=== PATIENT | male | born 1945 | race Caucasian/White ===

== ENCOUNTER 2018-10-30 09:28 | Day surgery (SDC) | payer MEDICARE ==
[~2018-10-30 09:28] MED LIST: Buffered Lidocaine 1% SYRIN* 1 ML/SYRINGE INTRADERM ONE; Famotidine IV* 10 MG/ML 2 ML (20 mg) IV ONE; Lactated Ringers 1000 ML Bag* 1,000 ML IV SCH
[2018-10-30] MEDS ORDERED: ceFAZolin 2 GM PREMIX in ORs 2 GM/50 ML BAG IVPB ONE (09:55)
[2018-10-30] MEDS ORDERED: Famotidine IV* 10 MG/ML 2 ML (20 mg) ONE (09:55)
[2018-10-30] MEDS ORDERED: Lidocaine 2% PF * 5 ML VIAL ONE (10:09)
[2018-10-30] MEDS ORDERED: Ketorolac INJ* 30 MG/ML 1 ML VIAL ONE (10:09)
[2018-10-30] MEDS ORDERED: Dexamethasone IV* 4 MG/ML 1 ML (4 MG) ONE (10:09)
[2018-10-30] MEDS ORDERED: Propofol* 10 MG/ML 20 ML BTL ONE (10:09)
[2018-10-30] MEDS ORDERED: Ondansetron INJ* 2 MG/ML VIAL ONE (10:09)
[2018-10-30] MEDS ORDERED: Cisatracurium* 2 MG/ML MDV 5 ML ONE (10:10)
[2018-10-30] MEDS ORDERED: Midazolam* 1 MG/ML 5 ML VIAL (5 MG) ONE (10:10)
[2018-10-30] MEDS ORDERED: fentaNYL* 50 MCG/ML 2 ML VIAL (100 MCG VIAL) ONE (10:10)
[2018-10-30] MEDS ORDERED: Bupivacaine 0.5% W/EPI SDV* 30 ML VIAL ONE (10:41)
[2018-10-30] MEDS ORDERED: Ondansetron INJ* 2 MG/ML VIAL IV PRN (12:01)
[2018-10-30] MEDS ORDERED: Acetaminophen IV 1GM/100ML * 1,000 MG/100 ML VIAL IVPB ONE (12:01)
[2018-10-30] MEDS ORDERED: fentaNYL* 50 MCG/ML 2 ML VIAL (100 MCG VIAL) IV PRN (12:01)
[2018-10-30] MEDS ORDERED: Naloxone* 0.4 MG/ML 1 ML VIAL IV PRN (12:01)
--- NOTE | 2018-10-30 12:56 | OP ---
Operative Report - Blank - Operative Report Date of Operation: 10/30/18 Note: Brief Operative Note Preop Dx: right inguinal hernia Postop Dx: same, direct Procedure: laparoscopic repair RIH w/ mesh Anesthesia: GET Surgeon: Evelyne Rpg Developer : Liao PA; ASIA Ferguson Fluids: 1350 ml RL EBL: < 10 ml Specimen: none Drains: none Findings: dictated
[2018-10-30 14:11] VITALS: BP 135/80
--- NOTE | 2018-10-30 20:58 | OP ---
CC: Mo DO Tyrone* OPERATIVE REPORT: DATE OF OPERATION: 10/30/18 - SDS DATE OF : 41 SURGEON: Jeancarlos Stubbs MD. COURT RECORDER: ALLEN Brush. ANESTHESIOLOGIST: Dr. Travon Simms. ANESTHESIA: General endotracheal. PRE-OP DIAGNOSIS: Recurrent right inguinal hernia. POST-OP DIAGNOSIS: Recurrent right inguinal hernia. OPERATIVE PROCEDURE: Laparoscopic preperitoneal repair of right inguinal hernia with mesh. ESTIMATED BLOOD LOSS: Minimal. IV FLUIDS: Crystalloid. SPECIMEN: None. DRAINS: None. COMPLICATIONS: None. COUNTS: The instrument, needle and sponge counts were correct. DESCRIPTION OF PROCEDURE: The patient was brought to the operating room and placed on the table supine. Sequential compression devices were placed on both lower extremities. General anesthesia was administered. Roach catheter was placed. He was positioned and padded appropriately and received the appropriate antibiotics and after prep and drape, a time-out was performed. Local anesthetic was infiltrated into the skin and soft tissue prior to each incision. A curvilinear infraumbilical incision was created. Subcutaneous tissues were divided with cautery. The anterior rectus fascia was identified to the right of midline and incised transversally. The underlying muscles were retracted laterally and a preperitoneal balloon dissection was positioned down to the pubic symphysis and insufflated under direct visualization. This was removed and replaced with a 12 mm blunt port. Carbon dioxide was insufflated to a pressure of 12 mmHg. Under direct visualization, two 5 mm trocars were placed in the lower midline. Inspection revealed the patient to have a large right direct inguinal hernia. The hernia sac was reduced and it was allowed to retract within the abdominal cavity. The dissection proceeded further the laterally, preserving the inferior epigastric vessels anteriorly and identifying and preserving the spermatic cord structures. The peritoneal sac was dissected free far laterally to the anterior superior iliac spine. The hernia defect itself was approximately 4 cm across. To repair this, the Bard 3DMax large right-sided mesh was used. The mesh was placed into the preperitoneal space and it was positioned to cover the direct, indirect, and femoral hernia spaces. The mesh was secured to the pubic tubercle, Manny's ligament, and anterior musculature with a CapSure tacker. The mesh was observed and positioned as the preperitoneal space was deflated. Subsequently, the ports were removed and the 12 mm port was repositioned intraperitoneally to allow inspection of the peritoneal cavity. There was no violation of the peritoneum on the right side. The mesh appeared to be in good position. There was no evidence of hernia on the left. The ports were removed and a carbon dioxide was released. The infraumbilical port site was closed in 2 layers with 0 Vicryl to approximate the posterior and anterior rectus fascia. The skin incisions were all closed with 4-0 Monocryl in subcuticular fashion. Steri- Strips were applied. The patient tolerated this procedure well, was extubated, and transferred to Recovery in stable condition. [id number]/[facility] #: [id number]
== END 2018-10-30 14:28 | disposition home or self-care (01) ==
LOC: OR 09:28
PROVIDERS: ATTEND Surgery
DX: K40.91 Unilateral inguinal hernia, without obstruction or gangrene, recurrent (principal); Z68.29 Body mass index [BMI] 29.0-29.9, adult
CPT/HCPCS: C1781; J0690; J1100; J1885; J2250; J2405; J2704; J3010